=== PATIENT | female | born 1975 | race African-American/Black ===

== ENCOUNTER 2019-08-04 21:53 | Emergency (ER) | payer BC ==
[~2019-08-04 21:53] MED LIST: Iopamidol-370 76% 500 ML 1 ML ONE
[2019-08-04] MEDS ORDERED: Ketorolac Tromethamine 30 MG/ML VIAL ONE (23:03)
[2019-08-04] MEDS ORDERED: diphenhydrAMINE 50 MG/ML VIAL ONE (23:03)
[2019-08-04] MEDS ORDERED: Metoclopramide HCl 10 MG/2 ML VIAL ONE (23:03)
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
== END 2019-08-05 00:03 | disposition home or self-care (01) ==
LOC: ERS 21:53
DX: S06.0X9A Concussion with loss of consciousness of unspecified duration, initial encounter (principal); S30.1XXA Contusion of abdominal wall, initial encounter; M06.9 Rheumatoid arthritis, unspecified; F41.9 Anxiety disorder, unspecified; F32.9 Major depressive disorder, single episode, unspecified; I10 Essential (primary) hypertension; Z79.899 Other long term (current) drug therapy; V89.2XXA Person injured in unspecified motor-vehicle accident, traffic, initial encounter
CPT/HCPCS: 36415; 71260; 74177; 80053; 80061; 83036; 85025; 96365; 96375; J1200; J1885; J2765; Q9967